=== PATIENT | female | born 1985 | race Two or more races ===

== ENCOUNTER 2024-04-05 13:38 | Emergency (ER) | payer OTHER ==
[~2024-04-05] VITALS: Ht 154.9 cm; Wt 56.7 kg
[2024-04-05] MEDS ORDERED: DEXAMETHASONE SODIUM PHOSPHATE 4 MG/ML VIAL IM STA (14:11)
[2024-04-05 14:50] LABS: HEMATOCRIT 38.9 % (36.0-45.00); HEMOGLOBIN 12.9 g/dL (12.0-15.00); MEAN CELL VOLUME 88.7 fL (80.00-100.00); MEAN CORPUSCULAR HEMOGLOBIN 29.4 pg (27.00-32.0); MEAN CORPUSCULAR HGB CONC 33.1 g/dl (32.0-36.0); PLATELET COUNT 216 K/uL (150-450); RED BLOOD COUNT 4.38 M/uL (4.00-6.00); RED CELL DISTRIBUTION WIDTH 12.6 % (11.5-14.5)
[2024-04-05 15:19] LABS: CALCIUM 9.2 mg/dL (8.5-10.1); CREATININE SERUM 0.93 mg/dL (0.55-1.02); GFR 67.47; POTASSIUM 3.83 mEq/L (3.5-5.1)
== END 2024-04-05 20:02 | disposition home or self-care (01) ==
LOC: ER 13:38
PROVIDERS: General Practice
DX: R55 Syncope and collapse (principal); R42 Dizziness and giddiness; Z88.1 Allergy status to other antibiotic agents
CPT/HCPCS: 36415; 70450; 70490; 93005; 96372; 99284; J1100